=== PATIENT | male | born 2005 | race Caucasian/White ===

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

== ENCOUNTER 2025-06-08 19:01 | Emergency (ER) | payer OTHER ==
[~2025-06-08] VITALS: Ht 167.6 cm; Wt 82.0 kg
[~2025-06-08 19:01] MED LIST changes: +AMOX TR-K CLV1 EACH PO
[2025-06-08] MEDS ORDERED: KETOROLAC TROMETHAMINE 60 MG/2 ML VIAL IM ONE (19:45)
[2025-06-08] MEDS ORDERED: CYCLOBENZAPRINE HCL 10 MG TAB PO ONE (19:45)
[2025-06-08] MEDS ORDERED: CELEBREX100 MG PO (20:45)
[2025-06-08] MEDS ORDERED: CYCLOBENZAPRINE10 MG PO (20:45)
[2025-06-08 21:00] VITALS: BP 134/79
[2025-06-08] MEDS ORDERED: CYCLOBENZAPRINE HCL 10 MG HOME.PACK PO ONE (21:00)
== END 2025-06-08 21:01 | disposition home or self-care (01) ==
LOC: ED 19:01
DX: S16.1XXA Strain of muscle, fascia and tendon at neck level, initial encounter (principal); S09.90XA Unspecified injury of head, initial encounter; J45.909 Unspecified asthma, uncomplicated; Z88.1 Allergy status to other antibiotic agents; Z88.8 Allergy status to other drugs, medicaments and biological substances; Z79.2 Long term (current) use of antibiotics; V89.2XXA Person injured in unspecified motor-vehicle accident, traffic, initial encounter
CPT/HCPCS: 70450; 72125; 96372; 99284-25; J1885